=== PATIENT | female | born 1985 | race Caucasian/White ===

== ENCOUNTER 2020-09-18 12:45 | Emergency (ER) | payer OTHER ==
[2020-09-18 12:51] VITALS: TEMP 98.4; BMI 45.3
[2020-09-18 14:30] LABS: BASO % 0.9 % (0-2.0); HEMATOCRIT 37.1 % (32.4-45.2); HEMOGLOBIN 12.9 GM/dL (10.7-15.3); LYMPH % 17.4 % (8-40); MCH 30.9 pg (25.7-33.7); MCHC 34.7 g/dl (32.0-36.0); MEAN PLT VOLUME 10.5 fl (7.5-11.1); MONO % 6.5 % (3.8-10.2); NEUT % 74.2 % (42.8-82.8); PLATELET COUNT 230 K/MM3 (134-434); RBC 4.17 M/mm3 (3.60-5.2); RDW 13.4 % (11.6-15.6); WHITE BLOOD COUNT 9.6 K/mm3 (4.0-10.0)
[2020-09-18 14:50] LABS: BLOOD UREA NITROGEN 9.5 mg/dL (7-18); CALCIUM 8.8 mg/dL (8.5-10.1)
[2020-09-18 14:51] LABS: MAGNESIUM 2.2 mg/dL (1.8-2.4)
[2020-09-18 14:53] LABS: CREATININE 0.5 mg/dL (0.55-1.3)
[2020-09-18 14:55] LABS: BILIRUBIN,TOTAL 0.3 mg/dL (0.2-1); TOT PROT 6.9 g/dl (6.4-8.2)
[2020-09-18 15:58] LABS: EPI CELLS >36 /uL (0-25.1); HYALINE CASTS 7 /uL (0-3.1); PH,URINE 6.5 (5.0-8.0); URINE APPEARANCE CLOUDY; URINE BACTERIA 3532 /uL (0-1359); URINE BILIRUBIN NEGATIVE (NEGATIVE); URINE COLOR YELLOW; URINE GLUCOSE (UA) NEGATIVE (NEGATIVE); URINE KETONE 1+ (NEGATIVE); URINE LEUK ESTERASE 1+ (NEGATIVE); URINE NITRITE NEGATIVE (NEGATIVE); URINE PROTEIN TRACE (NEGATIVE); URINE RBC 8 /uL (0-23.9); URINE UROBILINOGEN 0.2 mg/dL (0.2-1.0); URINE WBC 44 /uL (0-25.8)
[2020-09-18 16:33] VITALS: BP 117/72; PULSE 81
== END 2020-09-18 17:02 | disposition home or self-care (01) ==
LOC: JER 12:45
DX: N39.0 Urinary tract infection, site not specified (principal)
CPT/HCPCS: 36415; 76705-TC; 76801-TC; 80053; 81003; 83690; 83735; 84702; 85025; 87086; 99285-25

== ENCOUNTER 2022-07-28 05:57 | Day surgery (SDC) | payer OTHER ==
[2022-07-22 09:14] VITALS: BMI 46.5
[2022-07-28] MEDS ORDERED: OXYMETAZOLINE 0.05% NASAL SOLUTION 15 ML BOTTLE NS ONE (07:16)
[2022-07-28] MEDS ORDERED: ceFAZolin SODIUM 1 GM VIAL ONE ×2 (07:16→08:06)
[2022-07-28] MEDS ORDERED: POVIDONE-IODINE 5% OPHTHALMIC PREP 30 ML SOLUTION ONE (07:17)
[2022-07-28] MEDS ORDERED: BUPIVACAINE HCL 50 ML ONE (07:17)
[2022-07-28] MEDS ORDERED: TETRACAINE 0.5% OPHTH SOLN 2 ML BOTTLE ONE (07:17)
[2022-07-28] MEDS ORDERED: THROMBIN (BOVINE) 5,000 UNIT VIAL TP ONE ×2 (07:17→07:36)
[2022-07-28] MEDS ORDERED: LIDOCAINE 1%-EPI 1:100,000 30 ML MDV IJ ONE (07:17)
[2022-07-28] MEDS ORDERED: ERYTHROMYCIN 0.5% OPHTHALMIC OINTMENT 3.5 GM TUBE ONE (07:17)
[2022-07-28] MEDS ORDERED: SUCCINYLCHOLINE CHLORIDE 200 MG/10 ML SYRINGE ONE (07:39)
[2022-07-28] MEDS ORDERED: PROPOFOL 20 ML ONE (07:39)
[2022-07-28] MEDS ORDERED: MIDAZOLAM HCL 2 MG/2 ML SINGLE DOSE VIAL ONE (07:39)
[2022-07-28] MEDS ORDERED: DEXAMETHASONE SOD PHOSPHATE 4 MG/1 ML VIAL ONE (08:19)
[2022-07-28] MEDS ORDERED: ONDANSETRON 4 MG/2 ML VIAL ONE ×2 (08:19→09:22)
[2022-07-28] MEDS ORDERED: oxyCODONE HCL 5 MG TABLET PO PRN (09:34)
[2022-07-28] MEDS ORDERED: ONDANSETRON 4 MG/2 ML VIAL IVPUSH PRN (09:34)
[2022-07-28 09:44] VITALS: TEMP 97.8
[2022-07-28] MEDS ORDERED: LACTATED RINGERS SOLUTION 1,000 ML IV SCH (09:45)
[2022-07-28 10:51] VITALS: BP 123/78; PULSE 78; RESP 19
== END 2022-07-28 11:16 | disposition home or self-care (01) ==
LOC: FASU 05:57
PROVIDERS: ATTEND Ophthalmology
PROC: 09JK8ZZ Inspection of Nasal Mucosa and Soft Tissue, Via Natural or Artificial Opening Endoscopic (ICD-10-PCS; 2022-07-28)
PROC: 081X0Z3 Bypass Right Lacrimal Duct to Nasal Cavity, Open Approach (ICD-10-PCS; principal; 2022-07-28 08:17)
DX: H04.221 Epiphora due to insufficient drainage, right side (principal); H04.551 Acquired stenosis of right nasolacrimal duct
CPT/HCPCS: 81025; 87070; 87186; 87205; 88304-TC; 88311-TC; 94760